=== PATIENT | male | born 1960 | race Caucasian/White ===

== ENCOUNTER 2025-01-26 06:49 | Day surgery (SDC) | payer OTHER, SELFPAY | END 2025-01-26 09:56 | disposition home or self-care (01) | LOC: CATH 06:49 | PROVIDERS: ATTENDING PHYSICIAN Internal Medicine Cardiovascular Disease; FAMILY PHYSICIAN Family Medicine; OTHER PHYSICIAN Internal Medicine | DX: I48.19 Other persistent atrial fibrillation (principal); I08.3 Combined rheumatic disorders of mitral, aortic and tricuspid valves; I10 Essential (primary) hypertension; E78.5 Hyperlipidemia, unspecified; G47.33 Obstructive sleep apnea (adult) (pediatric); I25.10 Atherosclerotic heart disease of native coronary artery without angina pectoris; Z82.49 Family history of ischemic heart disease and other diseases of the circulatory system; Z79.01 Long term (current) use of anticoagulants | CPT/HCPCS: 93312; 93320; 93325 ==

== ENCOUNTER 2025-01-31 07:55 | Day surgery (SDC) | payer OTHER, SELFPAY ==
[2025-01-16 09:03] VITALS: BMI 31.0
[2025-01-16 09:15] LABS: Hematocrit 44.1 % (39.0-52.0); Hemoglobin 15.3 g/dL (13.0-18.0); Mean Corp Hgb Conc. 34.7 g/dL (33.0-37.0); Mean Corpuscular Volume 92.3 fL (80.0-94.0); Nucleated Red Blood Cells % 0 % (-); Platelet Count 230 10^3/uL (130-400); Red Cell Dist. Width 13.2 % (11.5-14.5)
[2025-01-16 09:25] LABS: INR 1.18; PT 15.3 Sec (11.4-14.6)
[2025-01-16 09:41] LABS: ALT (SGPT) 36 U/L (0-50); AST (SGOT) 23 U/L (17-59); Albumin 4.7 g/dl (3.5-5.0); Alkaline Phosphatase 55 U/L (38-126); Blood Urea Nitrogen 12 mg/dl (9-20); Calcium 9.9 mg/dl (8.4-10.2); Carbon Dioxide 29 mmol/L (22-30); Chloride 106 mmol/L (98-107); Estimated Creatinine Clearance > 125 ml/min; Glucose 114 mg/dl (70-99); Magnesium 2.1 mg/dl (1.6-2.3); Potassium 4.1 mmol/L (3.5-5.1); Sodium 143 mmol/L (135-145); Total Protein 7.2 g/dl (6.3-8.2); eGFR > 60.00
[2025-01-31] VITALS (14 sets, daily range): BP systolic 107–129; BP diastolic 73–90
[2025-01-31 11:09] LABS: ACT-LR - POC 226 Seconds (116-155)
[2025-01-31 11:24] LABS: ACT-LR - POC 256 Seconds (116-155)
--- NOTE | 2025-01-31 11:39 | ITS.CL.ABL ---
Photocopier Technician - Ablation
Ablation
Procedure Report:
ELECTROPHYSIOLOGY ABLATION STUDY
DATE:: January 31, 2025�����������������������������REFERRING: Dr. Rene Rivera
INDICATION: Persistent supraventricular tachycardia in the form of atrial fibrillation.��As above
HISTORY: See H and P.��As above
ANTIARRHYTHMIC DRUG: Metoprolol
PRE-PROCEDURE AUREA: No intracardiac thrombus on intracardiac ultrasound
PRESENTING RHYTHM: Atrial fibrillation
'TIME-OUT':��called and confirmed.
SEDATION/ANESTHESIA:��provided via the anesthesia department using general anesthesia (LMA).
INTRAVENOUS/ARTERIAL ACCESS:
Right femoral venous - 8Fr
Left femoral venous - 8 Fr, 6 Fr
Ultrasound guidance for bilateral femoral vein access was utilized by me to obtain access with demonstration of normal anatomy
CHADS-VASC Score:
HAS-Bled Score
PROCEDURE:
1.��A decapolar CS catheter was placed within the CS for mapping and pacing.��This was also used as the reference catheter for the 3-D map.
2. The intracardiac ultrasound catheter was positioned in the RA to identify the FO for targeting of transseptal puncture, assist��in identification of the pulmonary vein ostia, monitoring pre and post ablation pulmonary vein flow velocities,
monitoring for 'bubble' formation during RF application as a sign of thermal injury,��and to monitor for pericardial effusion during mapping and ablation procedure.���Left atrial size, LV ejection fraction, and pulmonary vein flows were monitored
pre and post ablation procedure. The other valves were inspected and found to be free of significant regurgitation or stenosis.
3.��Half of the calculated heparin bolus was administered prior to the first transeptal puncture.��Transseptal puncture was performed to diagnose RA and LA pressure so that safety of LA mapping and ablation could be further assessed, and to access
the left atrium and pulmonary veins for mapping and ablation.��This entailed advancing an 16.8 [place] sheath, RF wire with dilator into the superior vena cava and withdrawing both (monitoring intracardiac ultrasound, fluoroscopy and tip pressure)
with the tip oriented toward the atrial septum.��The fossa ovalis was engaged (indicated by sudden displacement of the sheath tip as well as tenting of the fossa seen on intracardiac ultrasound).��Left atrial access required a pass with the
Brockenbrough needle extended.��Left atrial catheter position was confirmed by pressure monitoring (RA mean pressure 8 mm Hg and LA mean presure 14 mm Hg), LA saturation (99%),��as well as fluoroscopy.��The sheath was advanced over the dilator and
positioned in the left atrium.��This procedure was repeated for the Agilis sheath.��The remainder of the calculated heparin bolus was administered and heparin was
infused to maintain ACT at 300 -350 seconds throughout the case.
4.��RA pacing was performed via the proximal decapolar poles and LA pacing was performed via the distal decapolr poles.
5. A quadrapolar catheter was first positioned at the His position for His Bundle recording which was tagged via the 3-D Navex sytem, and then passed to the RVA for RV pacing and recording.
6. The Penta spline and the grid catheter were placed in each of the LIPV, LSPV, RSPV and the RIPV.��
7.��Next, a 3-D map was created using Navex.���A 3-D reconstructed CT image was compared to the 3-D Navex map to assist in anatomic interpretation, mapping and ablation.��The CT image and the NavX image were fused.
8. 50 lesions were given to the pulmonary veins and all of in basket pose with entrance and exit block confirmed yet AF persisted. We then performed in flower pose the left atrial roofline, left atrial posterior wall substrate, and a left atrial
floor line as A-fib persisted throughout all of these extra pulmonary vein lesions. The patient was then converted to sinus rhythm with 1 200 J synchronized biphasic shock to sinus rhythm and there was entrance and exit block confirmed in all 4
pulmonary veins as well as the roof posterior wall and floor of the left atrium.
Follow-up EP study demonstrated noninducibility for atrial fibrillation or atrial tachycardia.
9. Normal sinus node AV node function noted.
TOTAL FLOURO TIME: 12.1 minutes 123 mGy
TOTAL RF DURATION: 0 minutes
REVERSAL OF HEPARIN: 30 mg of protamine, slow IV administration
COMPLICATIONS:
None
Intracardiac US shows no pericardial effusion post ablation.
SUMMARY:��
Complex left atrial mapping and ablation.
Isolation of all 4 pulmonary veins as well as the left atrial roof floor and posterior wall as above
RECOMMENDATIONS:
1. Ambulate 4 hours
2. Resume anticoagulation
3.��Consider same-day discharge
4.��Continue metoprolol
Copy to: Dr. Rene Rivera
--- NOTE | 2025-01-31 15:20 | W.PN.UPDATE ---
Update Note
Progress Note Update
64 yo WM s/p PVI (same day). He denies cp, sob, doug diet, EKG SR, b/l groins c/d/i F08 intact, no HT. He will resume Eliquis tonight. He will decrease metoprolol to 50mg twice daily. Activity restrictions reviewed. He will f/u Dr. Rivera in 3 mo.
He is for d/c home after 430p if groin stable.
== END 2025-01-31 16:35 | disposition home or self-care (01) ==
LOC: CATH 07:55
PROVIDERS: ATTENDING PHYSICIAN Internal Medicine Cardiovascular Disease; FAMILY PHYSICIAN Family Medicine; OTHER PHYSICIAN Internal Medicine
DX: I48.19 Other persistent atrial fibrillation (principal); I10 Essential (primary) hypertension; E78.5 Hyperlipidemia, unspecified; E66.9 Obesity, unspecified; Z68.31 Body mass index [BMI] 31.0-31.9, adult; G47.33 Obstructive sleep apnea (adult) (pediatric); I47.10 Supraventricular tachycardia, unspecified; I25.10 Atherosclerotic heart disease of native coronary artery without angina pectoris; Z79.899 Other long term (current) drug therapy; Z79.01 Long term (current) use of anticoagulants; Z82.49 Family history of ischemic heart disease and other diseases of the circulatory system; Z86.79 Personal history of other diseases of the circulatory system
CPT/HCPCS: C1732; C1894; C1730; C1769; C1892; C1759; 36415; 75572; 80053; 83735; 85025; 85347; 85610; 86850; 86900; 86901; 93005; 93656; 93657; C1733; C1766; Q9967

== ENCOUNTER 2025-04-20 06:48 | Day surgery (SDC) | payer OTHER, SELFPAY ==
--- NOTE | 2025-04-20 08:53 | ITS.CL.CARDI ---
[facility] - Cardioversion
Cardioversion
Procedure Report:
Procedure: DC cardioversion for atrial fibrillation following pulsed field ablation
Patient interviewed and examined. Consent obtained. Timeout performed.
Anesthetic agent: Propofol
Cardioversion technique: 200 J synchronized biphasic shock with patches in the AP position
Results: Normal sinus rhythm/sinus bradycardia
Complications: None
Conclusion: Successful cardioversion for recurrent atrial fibrillation following pulsed field ablation
Metoprolol ER will be reduced to 100 mg a.m. and 50 mg p.m.
The patient will follow-up to Dr. Rivera.
== END 2025-04-20 09:22 | disposition home or self-care (01) ==
LOC: CATH 06:48
PROVIDERS: ATTENDING PHYSICIAN Nuclear Medicine Nuclear Cardiology; FAMILY PHYSICIAN Family Medicine; OTHER PHYSICIAN Internal Medicine
DX: I48.91 Unspecified atrial fibrillation (principal); I49.3 Ventricular premature depolarization; Z79.01 Long term (current) use of anticoagulants
CPT/HCPCS: 92960; 93005